=== PATIENT | male | born 1970 | race Caucasian/White ===

== ENCOUNTER 2018-11-30 13:06 | Outpatient (CLI) | payer MEDICARE, MEDICAID | END 2018-11-30 13:07 | disposition EMS.NT | LOC: EMS 13:06 | PROVIDERS: ATTEND Surgery | DX: R56.9 Unspecified convulsions (principal) ==

== ENCOUNTER 2021-06-26 14:54 | Outpatient (CLI) | payer MEDICARE, MEDICAID | END 2021-06-26 14:55 | disposition EMS.NT | LOC: EMS 14:54 | DX: T14.90XA Injury, unspecified, initial encounter (principal); Y09 Assault by unspecified means ==

== ENCOUNTER 2022-11-04 20:09 | Outpatient (CLI) | payer MEDICARE, MEDICAID | END 2022-11-04 23:59 | disposition EMS.NT | LOC: EMS 20:09 | DX: F10.90 Alcohol use, unspecified, uncomplicated (principal) ==

== ENCOUNTER 2022-12-31 15:45 | Outpatient (CLI) | payer MEDICARE, MEDICAID | END 2022-12-31 23:59 | disposition EMS.NT | LOC: EMS 15:45 | DX: Z03.89 Encounter for observation for other suspected diseases and conditions ruled out (principal) ==

== ENCOUNTER 2023-06-20 15:28 | Outpatient (CLI) | payer MEDICARE, MEDICAID | END 2023-06-20 23:59 | disposition EMS.NT | LOC: EMS 15:28 | DX: F10.90 Alcohol use, unspecified, uncomplicated (principal); Z59.00 Homelessness unspecified ==

== ENCOUNTER 2023-07-08 14:18 | Outpatient (CLI) | payer MEDICARE, MEDICAID | END 2023-07-08 14:19 | disposition EMS.NT | LOC: EMS 14:18 | DX: R11.2 Nausea with vomiting, unspecified (principal); Z59.00 Homelessness unspecified ==

== ENCOUNTER 2023-09-15 22:31 | Outpatient (CLI) | payer MEDICARE, MEDICAID | END 2023-09-15 23:59 | disposition critical access hospital (66) | LOC: EMS 22:31 | DX: Z04.6 Encounter for general psychiatric examination, requested by authority (principal); F10.129 Alcohol abuse with intoxication, unspecified; Z59.00 Homelessness unspecified | CPT/HCPCS: A0425; A0429 ==

== ENCOUNTER 2023-09-15 22:53 | Emergency (ER) | payer MEDICARE, MEDICAID ==
--- NOTE | 2023-09-15 23:33 | ED Physician Documentation ---
History of Present Illness - Stated complaint Stated Complaint: RENAE/ETOH - Chief complaint Chief Complaint: General - History obtained from History obtained from: Patient - Additonal information Additional information: HPI is obtained from patient, EMS, and a printout that contains a brief narrative from [facility]. Patient admits to drinking alcohol earlier today and tonight. Per EMS and the police report, the patient was lying down in a parking lot and thus a passerby called 911. Patient tells me he did not fall, says he was lying down because he was tired. He denies SI, denies AH, VH. Patient tells me that the police poured out the rest of his alcohol on scene. Review of Systems GI: denies: Abdominal Pain, Nausea, Vomiting Neurologic: denies: Generalized weakness, Focal weakness, Numbness, Headache, Head injury, LOC Psychiatric: denies: Depressed, Suicidal, Hallucinations, Delusions, Anxiety PD PAST MEDICAL HISTORY - Past Medical History Past Medical History: No - Allergies Allergies/Adverse Reactions: Allergies Allergy/AdvReac Type Severity Reaction Status Date / Time Penicillins Allergy Unknown Verified 09/15/23 22:57 - Social History Does the pt smoke?: No Smoking Status: Never smoker Does the pt drink ETOH?: Yes PD ED PE NORMAL - Vitals Vital signs reviewed: Yes - General General: Alert and oriented X 3, No acute distress, Well developed/nourished, Other (speech is slurred but intelligible and answers are appropriate to questions) - HEENT HEENT: Atraumatic, PERRL, EOMI, Moist mucous membranes - Cardiac Cardiac: RRR, No murmur - Respiratory Respiratory: No respiratory distress, Clear bilaterally - Abdomen Abdomen: Soft, Non tender - Neuro Neuro: Alert and oriented X 3, 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 Patient repeatedly insists that he was lying down simply because he was tired. In the course of our conversation, he acknowledges that is an appropriate place to lie down for any reason.I offered services for treatment of his alcoholism; specifically, we discussed option for social work consult but he refuses this. He acknowledges his alcoholism but says he does not want any help with treatment at this time. He is requesting discharge from the ED. At this time, I do not feel that there is sufficient information to warrant detaining this patient against his will. I strongly encouraged him to contact his primary care provider to discuss options for treatment of his alcoholism. I also advised him of the [facility] in [place], and information for [facility] is provided in his discharge instructions. Departure - Departure Disposition: 01 Home, Self Care Clinical Impression: Alcoholism Condition: Good Instructions: ED Alcohol Abuse Comments: I recommend that you actively seek out help for your alcoholism. One option for treatment is [facility]: [facility] [address] [place] [address] Forms: PCP List Discharge Date/Time: 09/16/23 00:26
[2023-09-16 00:28] VITALS: BP 140/89; O2SAT 97
== END 2023-09-16 00:26 | disposition home or self-care (01) ==
LOC: EDUNIT# → ED 22:53
DX: F10.20 Alcohol dependence, uncomplicated (principal)
CPT/HCPCS: 99283

== ENCOUNTER 2023-11-17 16:39 | Outpatient (CLI) | payer MEDICARE, MEDICAID | END 2023-11-17 23:59 | disposition critical access hospital (66) | LOC: EMS 16:39 | DX: F10.229 Alcohol dependence with intoxication, unspecified (principal); R41.0 Disorientation, unspecified | CPT/HCPCS: A0425; A0429 ==

== ENCOUNTER 2023-11-17 17:02 | Emergency (ER) | payer MEDICARE, MEDICAID ==
[2023-11-17 17:18] VITALS: O2SAT 95
--- NOTE | 2023-11-17 18:10 | ED Physician Documentation ---
History of Present Illness - Stated complaint Stated Complaint: ETOH/RENAE - Chief complaint Chief Complaint: MHE - History obtained from History obtained from: Patient - History of Present Illness Timing: Today Pain level max: 0 Pain level now: 0 - Additonal information Additional information: 53-year-old male with a longstanding history of alcoholism. He was in [place] today when the police found him on the sidewalk and called EMS to bring him here for his chronic alcoholism. He is not suicidal or homicidal. Did not commit any reported crimes. Did not injure anybody or himself. Did not harm any property today per EMS report. The police put him on an RENAE for danger to property, self and others. There is no reported history of any of these events today. Patient also denies any of these events today. PD PAST MEDICAL HISTORY - Allergies Allergies/Adverse Reactions: Allergies Allergy/AdvReac Type Severity Reaction Status Date / Time Penicillins Allergy Unknown Verified 11/17/23 17:15 - Social History Does the pt smoke?: No Smoking Status: Never smoker Does the pt drink ETOH?: Yes Results - Vitals Vitals: Vital Signs - 24 hr 11/17/23 17:07 Temperature 37 C Heart Rate 86 Respiratory 16 Rate Blood Pressure 100/78 O2 Saturation 95 Oxygen O2 Source Room air Departure - Departure Disposition: 01 Home, Self Care Clinical Impression: Alcoholism Condition: Good Instructions: ED Alcohol Abuse, ED Alcohol Intoxication Follow-Up: Odessa Martin ND [Primary Care Provider] - Comments: Please follow-up with your doctor for further care. You can contact [facility] for help with your drinking. Contact: [facility] [address] [place] [phone] Fax:
[2023-11-17 18:25] VITALS: BP 123/90
--- NOTE | 2023-11-17 18:28 | ED Physician Documentation ---
ED Addendum - Addendum Addendum: 11/17/23 18:26 The prior note was accidentally locked prematurely, please see that note for HPI PD ED PE NORMAL - Vitals Vital signs reviewed: Yes - General General: Alert and oriented X 3, No acute distress, Well developed/nourished - HEENT HEENT: Moist mucous membranes - Neck Neck: Supple, no meningeal sign - Cardiac Cardiac: RRR, Strong equal pulses - Respiratory Respiratory: No respiratory distress, Clear bilaterally - Abdomen Abdomen: Soft, Non tender, Non distended - Derm Derm: Warm and dry - Extremities Extremities: No edema, No calf tenderness / cord - Neuro Neuro: Alert and oriented X 3, 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 He does not want to be seen in the emergency department today. He is not suicidal, homicidal, and imminent danger to self or others. No reported crimes today. Ambulating with a steady gait and under his own power without assistance. Eating and drinking without di fficulty. Clear and coherent speech. I do not see any reason that this patient should be held against his will in the emergency department at this time. Patient will be discharged back to the [facility] where he stays. Patient was given information regarding detox facility should he choose to go seek alcohol detox. Refuses blood work today. Patient counseled regarding signs and symptoms for which I believe and urgent re-evaluation would be necessary. Patient with good understanding of and agreement to plan and is comfortable going home at this time This document was made in part using voice recognition software. While efforts are made to proofread this document, sound alike and grammatical errors may occur. Departure - Departure Disposition: 01 Home, Self Care Clinical Impression: Alcoholism Condition: Good Instructions: ED Alcohol Intoxication, ED Alcohol Abuse Follow-Up: Odessa Martin ND [Primary Care Provider] - Comments: Please follow-up with your doctor for further care. You can contact [facility] for help with your drinking. Contact: [facility] [address] [place] [phone] Fax: Forms: PCP List
== END 2023-11-17 18:25 | disposition home or self-care (01) ==
LOC: EDUNIT# → ED 17:02
DX: F10.20 Alcohol dependence, uncomplicated (principal)
CPT/HCPCS: 99283

== ENCOUNTER 2024-02-01 21:01 | Outpatient (CLI) | payer MEDICARE, MEDICAID | END 2024-02-01 21:02 | disposition EMS.NT | LOC: EMS 21:01 | DX: F10.90 Alcohol use, unspecified, uncomplicated (principal) ==

== ENCOUNTER 2024-02-11 13:15 | Emergency (ER) | payer OTHER, MEDICARE, MEDICAID ==
[2024-02-11 13:55] VITALS: BP 138/93; O2SAT 99
[2024-02-11 14:00] LABS: BASOPHILS # (AUTO) 0.1 10^3/uL (0.0-0.1); EOSINOPHILS % (AUTO) 0.4 %; HCT - HEMATOCRIT 37.8 % (42.0-52.0); HGB - HEMOGLOBIN 12.6 g/dL (14.0-18.0); LYMPHOCYTES # (AUTO) 1.6 10^3/uL (1.5-3.5); LYMPHOCYTES % (AUTO) 23.7 %; MEAN CORPUSCULAR HEMOGLOBIN 33.6 pg (27.0-31.0); MEAN CORPUSCULAR HGB CONC 33.3 g/dL (32.0-36.0); MEAN CORPUSCULAR VOLUME 100.8 fL (80.0-94.0); MEAN PLATELET VOLUME 8.9 fL (7.4-11.4); MONOCYTES # (AUTO) 0.6 10^3/uL (0.0-1.0); MONOCYTES % (AUTO) 8.4 %; NEUTROPHILS # (AUTO) 4.6 10^3/uL (1.5-6.6); NEUTROPHILS % (AUTO) 66.4 %; PLT - PLATELET COUNT 292 10^3/uL (130-450); RED BLOOD COUNT 3.75 10^6/uL (4.70-6.10); RED CELL DISTRIBUTION WIDTH 13.6 % (12.0-15.0); WHITE BLOOD COUNT 6.9 x10^3/uL (4.8-10.8)
[2024-02-11 14:15] LABS: AMPHETAMINE SCREEN,URINE NEGATIVE (NEGATIVE); BARBITURATE SCREEN,UR NEGATIVE (NEGATIVE); BENZODIAZEPINES SCREEN, URINE NEGATIVE (NEGATIVE); BUPRENORPHINE SCREEN, URINE NEGATIVE (NEGATIVE); COCAINE SCREEN URINE NEGATIVE (NEGATIVE); METHADONE SCREEN, URINE NEGATIVE (NEGATIVE); METHAMPHETAMINES SCREEN, URINE NEGATIVE (NEGATIVE); OPIATE SCREEN, URINE NEGATIVE (NEGATIVE); OXYCODONE SCREEN, URINE NEGATIVE (NEGATIVE); THC CANNABINOID SCREEN, URINE POSITIVE (NEGATIVE); TRICYCLIC ANTIDEPRESSANT,URINE NEGATIVE (NEGATIVE)
[2024-02-11 14:17] LABS: ALBUMIN/GLOBULIN RATIO 1.5 (1.0-2.2); BILIRUBIN,TOTAL 0.7 mg/dL (0.2-1.0); CALCIUM 9.3 mg/dL (8.5-10.3); CREATININE 0.7 mg/dL (0.6-1.3); ETOH - ETHANOL 120.6 mg/dL; POTASSIUM 3.4 mmol/L (3.5-4.5); TOTAL PROTEIN 6.6 g/dL (6.4-8.9)
[2024-02-11 14:53] LABS: BILIRUBIN,URINE NEGATIVE (NEGATIVE); GLUCOSE, URINE (UA) NEGATIVE (NEGATIVE); KETONES,URINE (UA) TRACE mg/dL (NEGATIVE); LEUKOCYTE ESTERASE, URINE NEGATIVE (NEGATIVE); NITRITE,URINE NEGATIVE (NEGATIVE); OCCULT BLOOD,URINE TRACE-LYSE (NEGATIVE); PROTEIN,URINE 100 mg/dL (NEGATIVE); UROBILINOGEN,URINE 1 (NORMAL) E.U./dL (NORMAL)
[2024-02-11 14:55] LABS: CLARITY,URINE CLEAR (CLEAR)
[2024-02-11 15:09] LABS: AMORPHOUS SEDIMENT,UR Few /LPF; BACTERIA,URINE None Seen /HPF (None Seen); RBC,URINE 0-5 /HPF (0-5); SQUAMOUS EPITHELIAL CELL,UR NONE SEEN (<= Few); WBC,URINE 0-3 /HPF (0-3)
--- NOTE | 2024-02-11 15:15 | ED Physician Documentation ---
History of Present Illness - Stated complaint Stated Complaint: RENAE - Chief complaint Chief Complaint: MHE - History obtained from History obtained from: Police, Other (SW) - Additonal information Additional information: The pt arrives here in police custody without much information, other than that the patient was sent here by the DCR after leaving [facility] this afternoon. The patient does not know why he is here and wants to leave. The police social science analyst cannot really tell us exactly why the patient was sent here. They report that he is neither suicidal nor homicidal. Apparently he has been drinking alcohol and running out into traffic but it is not clear if the 2 are related. Patient does also have a history of schizophrenia according to the report. No other information is available at this time. PD PAST MEDICAL HISTORY - Past Medical History Past Medical History: Yes Neuro: Head injury, Other Other Past Medical History: TBI - Allergies Allergies/Adverse Reactions: Allergies Allergy/AdvReac Type Severity Reaction Status Date / Time Penicillins Allergy Unknown Verified 02/11/24 13:37 - Social History Does the pt smoke?: No Smoking Status: Unknown if ever smoked Does the pt drink ETOH?: Yes ETOH Use: Beer PD ED PE NORMAL - Vitals Vital signs reviewed: Yes - General General: No acute distress, Well developed/nourished, Other (Alert, grossly intact.) - HEENT HEENT: Atraumatic, EOMI, Moist mucous membranes - Neck Neck: Supple, no meningeal sign - Cardiac Cardiac: RRR, No murmur - Respiratory Respiratory: No respiratory distress, Clear bilaterally - Abdomen Abdomen: Soft, Non tender, Non distended - Derm Derm: Normal color, Warm and dry, No rash - Extremities Extremities: No deformity, No edema - Neuro Neuro: Other (Alert, grossly intact.) - Psych Psych: Normal mood, Normal affect Results - Vitals Vitals: Vital Signs - 24 hr 02/11/24 13:15 Temperature 36.5 C Heart Rate 109 H Respiratory 17 Rate Blood Pressure 138/93 H O2 Saturation 99 Oxygen O2 Source Room air - Labs Labs: Laboratory Tests 02/11/24 02/11/24 02/11/24 13:48 13:48 13:54 WBC 6.9 RBC 3.75 L Hgb 12.6 L Hct 37.8 L MCV 100.8 H MCH 33.6 H MCHC 33.3 RDW 13.6 Plt Count 292 MPV 8.9 Neut # (Auto) 4.6 Lymph # (Auto) 1.6 [place] # (Auto) 0.6 Eos # (Auto) 0.0 Baso # (Auto) 0.1 Absolute Nucleated RBC 0.00 Nucleated RBC % 0.0 Sodium Potassium Chloride Carbon Dioxide Anion Gap BUN Creatinine Estimated GFR (MDRD) Glucose Calcium Total Bilirubin AST ALT Alkaline Phosphatase Total Protein Albumin Globulin Albumin/Globulin Ratio Lipase Urine Color DARK YELLOW Urine Clarity CLEAR Urine pH 6.0 Ur Specific [place] >=1.030 H Urine Protein 100 H Urine Glucose (UA) NEGATIVE Urine Ketones TRACE Urine Occult Blood TRACE-LYSE Urine Nitrite NEGATIVE Urine Bilirubin NEGATIVE Urine Urobilinogen 1 (NORMAL) Ur Leukocyte Esterase NEGATIVE Urine RBC 0-5 Urine WBC 0-3 Ur Squamous Epith Cells NONE SEEN Amorphous Sediment Few Urine Bacteria None Seen Ur Microscopic Review INDICATED Urine Culture Comments NOT INDICATED Urine Opiates Screen NEGATIVE Ur Buprenorphine Scrn NEGATIVE Ur Oxycodone Screen NEGATIVE Urine Methadone Screen NEGATIVE Ur Barbiturates Screen NEGATIVE Ur Tricyclics Screen NEGATIVE Ur Phencyclidine Scrn NEGATIVE Ur Amphetamine Screen NEGATIVE U Methamphetamines Scrn NEGATIVE U Benzodiazepines Scrn NEGATIVE Urine Cocaine Screen NEGATIVE U Cannabinoids Screen POSITIVE H Ur Drug Screen Comment CUTOFF CONC BELOW: Ethyl Alcohol 02/11/24 13:54 WBC RBC Hgb Hct MCV MCH MCHC RDW Plt Count MPV Neut # (Auto) Lymph # (Auto) [place] # (Auto) Eos # (Auto) Baso # (Auto) Absolute Nucleated RBC Nucleated RBC % Sodium 139 Potassium 3.4 L Chloride 103 Carbon Dioxide 27 Anion Gap 9.0 BUN 9 Creatinine 0.7 Estimated GFR (MDRD) 118 Glucose 90 Calcium 9.3 Total Bilirubin 0.7 AST 57 H ALT 52 Alkaline Phosphatase 67 Total Protein 6.6 Albumin 4.0 Globulin 2.6 Albumin/Globulin Ratio 1.5 Lipase 68 Urine Color Urine Clarity Urine pH Ur Specific [place] Urine Protein Urine Glucose (UA) Urine Ketones Urine Occult Blood Urine Nitrite Urine Bilirubin Urine Urobilinogen Ur Leukocyte Esterase Urine RBC Urine WBC Ur Squamous Epith Cells Amorphous Sediment Urine Bacteria Ur Microscopic Review Urine Culture Comments Urine Opiates Screen Ur Buprenorphine Scrn Ur Oxycodone Screen Urine Methadone Screen Ur Barbiturates Screen Ur Tricyclics Screen Ur Phencyclidine Scrn Ur Amphetamine Screen U Methamphetamines Scrn U Benzodiazepines Scrn Urine Cocaine Screen U Cannabinoids Screen Ur Drug Screen Comment Ethyl Alcohol 120.6 PD Medical Decision Making - ED course Complexity details: reviewed results, re-evaluated patient, considered differential, d/w patient ED course: I called the social science analyst because we really were not quite sure why the patient had been transferred to our emergency department. The social science analyst was able to touch base with the DCR and found that the patient had indeed been sent by command of the DCR and that they would be arriving within 6 hours of the patient's arrival here. No further information is available through the social science analyst. We have ordered clearance labs for the patient and he will be kept in the emergency department until DCR can arrive to see him. He is signed out at change of shift to my oncoming colleague Dr. Lo, pending clearance and DCR evaluation and final disposition. Departure - Departure
--- NOTE | 2024-02-11 16:23 | ED Physician Documentation ---
ED Addendum - Addendum Addendum: 02/11/24 16:23 Seen by the DCR and cleared for outpatient treatment. Disposition: Discharged home Condition: Stable
== END 2024-02-11 16:45 | disposition home or self-care (01) ==
LOC: EDUNIT# → ED 13:15
DX: Z76.89 Persons encountering health services in other specified circumstances (principal)
CPT/HCPCS: 36415; 80053; 80306; 81001; 81003; 82077; 83690; 85025; 87086; 87635; 99283; 99284